=== PATIENT | male | born 1945 | race Caucasian/White ===

== ENCOUNTER 2022-06-28 09:27 | Outpatient (CLI) | payer OTHER, SELFPAY ==
[2022-06-28 14:06] LABS: Chloride* 103 mmol/L (96-114); Sodium* 135 mmol/L (135-149)
[2022-06-28 14:08] LABS: Cholesterol* 134 mg/dL (90-199)
[2022-06-28 14:09] LABS: Alanine Aminotransferase* 20 U/L (4-50); Blood Urea Nitrogen* 19 mg/dL (7-30); Carbon Dioxide* 24 mmol/L (20-32); Creatinine* 1.1 mg/dL (0.5-1.5); Estimated Glomerular Filt Rate 69 ml/min; Glucose* 207 mg/dL (60-115); Triglycerides* 290 mg/dL (40-149)
[2022-06-28 14:10] LABS: Calcium* 9.1 mg/dL (8.4-10.6); HDL Cholesterol* 33 mg/dL (>=40); LDL Cholesterol Calculated 43 mg/dL (<100)
== END 2022-06-28 09:28 | disposition home or self-care (01) ==
PROVIDERS: PCP Family Medicine; Visit Provider Family Medicine
DX: Z00.00 Encounter for general adult medical examination without abnormal findings (principal); E78.5 Hyperlipidemia, unspecified; E11.9 Type 2 diabetes mellitus without complications; I10 Essential (primary) hypertension
CPT/HCPCS: 80048; 80061; 84460

== ENCOUNTER 2023-08-10 09:21 | Outpatient (CLI) | payer OTHER, SELFPAY ==
--- OUTSIDE RECORDS SUMMARY | 2023-08-10 09:24 | XMS_ITS | Clinical Summary ---
Author Name Unknown Organization [employer] [facility] Address [place], [place] [address] Care Team Providers Care [facility] [employer] Name Role Phone Tavo Butler MD Primary Care Provider + Allergies No known active allergies Medications Medication Sig Dispensed Refills Start Date End Date Status atenolol (TENORMIN) 50 mg tabletIndications:Hyp ertension Take 1 tablet by mouth once daily. 90 tablet 1 01/08/2013 Active sildenafil citrate (VIAGRA) 100 mg tablet Take 1 tablet by mouth once daily if needed. Take 30min to 4 hours before sexual activity. Max 100mg/24hr. 10 tablet 1 01/08/2013 Active clopidogrel (PLAVIX) 75 mg tablet Take 1 tablet by mouth once daily. 90 tablet 3 11/28/2013 Active atorvastatin (LIPITOR) 80 mg tabletIndications:Hyp erlipidemia, unspecified hyperlipidemia type Take 20 mg daily. New dose. 0 04/25/2016 Active lisinopriL (PRINIVIL; ZESTRIL) 20 mg tablet Take 1 Tablet (20 mg) by mouth once daily. 0 11/04/2020 Active cilostazoL (PLETAL) 50 mg tabletIndications:PAD (peripheral artery disease) (HC) Take 1 Tablet (50 mg) by mouth 2 times daily before meals. 180 Tablet 3 11/04/2020 Active furosemide (LASIX) 40 mg tablet TAKE ONE TABLET BY MOUTH EVERY DAY AND TAKE ONE-HALF TABLET EVERY EVENING NEEDED IF WEIGHT INCREASE BY GREATER THEN 3 POUNDS IN 1 DAY OR GREATER THEN 5 POUNDS IN 3 DAYS 05/04/2020 Active metFORMIN (GLUCOPHAGE XR) 500 mg Extended-Release tablet TAKE ONE TABLET BY MOUTH THREE TIMES A DAY FOR DIABETES 11/01/2020 Active nicotine 21 mg/24 hr (NICODERM; HABITROL) 21 mg/24 hr patch APPLY 1 PATCH TOPICALLY EVERY DAY 02/01/2021 Active nicotine (COMMIT) 4 mg lozenge DISSOLVE 1 MINI LOZENGE IN MOUTH EVERY HOUR NEEDED EVERY 1 HOUR NEEDED FOR URGE TO USE TOBACCO - PARK BETWEEN CHEEK AND GUM TO QUIT TOBACCO EVERY 1 HOUR NEEDED FOR URGE TO USE TOBACCO - PARK BETWEEN CHEEK AND GUM TO QUIT TOBACCO 11/03/2020 Active tiotropium bromide (SPIRIVA RESPIMAT) 2.5 mcg/actuation mist for inhalation INHALE TWO PUFFS BY INHALATION EVERY DAY TO PREVENT TROUBLE BREATHING RESTART SPIRIVA 12/30/2020 Active albuterol HFA (PRO-AIR; VENTOLIN; PROVENTIL) 90 mcg/actuation inhaler INHALE 2 PUFFS FOUR TIMES A DAY NEEDED FOR SHORTNESS OF BREATH & IMMEDIATE RELIEF - SHAKE WELL 11/01/2020 Active Accu-Chek Guide Glucose Meter DIRECTED 08/26/2021 Active Accu-Chek Guide test strips strip TEST TWO TIMES A DAY 08/26/2021 Active empagliflozin (JARDIANCE) 25 mg tablet 12.5 mg. 08/24/2021 Active Accu-Chek Softclix Lancets 2 times daily. 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 CVA (cerebral infarction) 12/04/2013 COPD (chronic obstructive pulmonary disease) Carotid bruit 10/20/2010 Hypertension 10/20/2010 Vitamin D deficiency 09/23/2008 Nasal lesion 08/09/2008 PERIPHERAL ARTERY DISEASE 10/22/2007 Tobacco use disorder 08/23/2006 Encounter for screening colonoscopy Resolved Problems Problem Noted Date Diagnosed Date Resolved Date Fatigue 01/20/2014 10/13/2015 Dyslipidemia 10/20/2010 10/13/2015 CRP elevated 10/05/2009 10/13/2015 Pre-diabetes 11/19/2008 10/13/2015 Vitamin D deficiency 09/23/2008 010 Elevated glucose 08/09/2008 11/21/2011 Cramp of limb 10/22/2007 10/13/2015 Cramp of limb 09/10/2006 10/22/2007 Other symptoms involving car diovascular system 09/10/2006 10/13/2015 Immunizations Name Administration Dates Next Due AMB Influenza, IIV3 (Age >=3 years) Preserve Free (Flu Clinic Only) 01/21/2011 AMB Influenza, IIV3 (Age >=3 years)(Flu Clinic Only) 12/20/2011,01/14/2010 Influenza, High-dose Inactivated 01/21/2018,11/25,01/11/2015 Influenza, IIV3 (Age >=3 years) 01/08/2013,12/28,01/14/2007 Influenza, IIV4 02/23/2014 Pneumococcal Poly,23-Valent (Pneumovax) 10/19/19 10 Pneumococcal conj 13-Valent (Prevnar 13) 016 Td (Age >=7 Years) 02/28/1990 Tdap 09/07/2006 Zoster (Zostavax-ZVL, live) 11/01/2009 Family History * Patient is adopted Medical History Relation Name Comments Hypertension Mother Relation Name Status Comments Brother 1 1/2 fall constr uction Brother 2 1/2 Brother 3 Alive 1/2 Brother 4 Alive 1/2 Brother 5 Alive 1/2 Daughter Alive Father (Age 79) Pancreatic cancer Mother (Age 54) Cancer sto mach Sister 1 Alive 1/2 sister Sister 2 Alive 1/2 sister Sister 3 Alive 1/2 sister Son Alive Social History Tobacco Use Types Packs/Day Years Used Date Smoking Tobacco: Every Day Cigarettes 1.5 52 Smokeless Tobacco: Never Tobacco Cessation:Ready to Q uit: No; Counseling Given: Yes Comments:using patches to try to quit Alcohol Use Standard Drinks/Week Comments No 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/17 PHQ-2 Answer Date Recorded PHQ-2 Score 0 05/25/2018 Social Connections Answer Date Recorded Frequency of Communication with Friends and Fami ly Not on file 03/26/2021 Financial Resource Strain Answer Date R ecorded Difficulty of Paying Living Expenses Not on file 03/26/2021 Difficulty of Paying Living Expenses Not on file 03/26/2021 Sex and Gender Information Value Date Recorded Sex Assigned at Not on file Gender Identity Not on file Sexual Orientation Not on file Obstetrics History Last Filed Vital Signs Vital Sign Reading Time Taken Comments Blood Pressure 102/70 10/20/2021 9:24 AM CDT Pulse 108 10/20/2021 9:32 AM CDT Temperature 36.9 ??C (98.4 ??F) 12/18/2020 2:44 PM CD T Respiratory Rate 14 10/20/2021 9:24 AM CDT Oxygen Saturation 94% 10/20/2021 9:32 AM CDT Inhaled Oxygen Concentration - - Weight 83.5 kg (184 lb 1.6 oz) 10/20/2021 9:24 A M CDT Height 169.5 cm (5' 6.73) 10/20/2021 9:24 AM CD T Body Mass Index 29.07 10/20/2021 9:24 AM CDT Plan of Treatment Health Maintenance Due Date Last Done Comments Zoster (shingles) series for age 50+ (2 of 3) 12/27/2009 11/01/2009 Tetanus booster 09/07/2016 09/07/2006, 02/28/1990 Medicare Wellness for age 65+ 11/15/2016, 08/24/2014, 01/08/2013, Additional history exists Depression screening for age 12+ 01/31/2019 01/31/2018, 05/11/2017, 11/15/2015, Additional history exists BMI (ht and wt on same day) for age 18+ 10/20/2022 10/20/2021, 02/10/2021, 11/04/2020, Additional history exists COVID-19 vaccine series ( season) 2022 01/12/2021 Influenza for age 65+ 11/25/2023 01/21/2018 , 12/17/2015, 01/11/2015, Additional history exists Tdap Completed 09/07/2006 Hepatitis C screening for ag e 18-79 Completed 01/15/2014 Pneumococcal series for age 65+ Completed 6, 10/18/2009 Procedures Procedure Name Priority Date/Time Associated Diagnosis Comments ANTI HCV Routine 01/15/2014 7:48 AM CDT Routine general medical examination at a health care facility from Last 3 Months or Most Recently Relevant to Health Maintenance Results * ANTI HCV (01/15/2014 7:48 AM CDT) HEPATITIS C ANTIBODY Non-Reacti ve Non-Reacti ve 01/15/2014 5:06 PM CDT [facility] Blood specimen (specimen) BLOOD SPECIMEN / Unknown Venipuncture / Unknown 01/15/2014 7:48 AM CDT 01/15/2014 7:48 AM CDT Narrative [facility] - 01/15/2014 5:06 PM CDT Antibodies to HCV not detected; does not exclude the possibility of exposure to HCV. Mike Jain MD SEND OUTS [facility] [address] [place] [address], [place] from Last 3 Months or Most Recently Relevant to Health Maintenance Advance Directives Documents on File Type Date Recorded Patient Restaurant Manager Expl anation Healthcare Directive 01/25/2016 11:27 AM 1 * Full Code (Latest Code Status on File) Date Activated Date Inactivated Comments 10/15/2015 6:24 AM 10/15/2015 6:12 PM * Full Code Date Activated Date Inactivated Comments 10/13/2015 5:45 AM 10/15/2015 6:24 AM Question Answer Comments Code Status Discussion: Discussed * Full Code Date Activated Date Inactivated Comments 10/07/2015 4:21 PM 10/09/2015 1:22 PM Question Answer Comments Code Status Discussion: Discussed * Full Code Date Activated Date Inactivated Comments 02/20/2014 6:10 AM 02/20/2014 3:50 PM Care Teams [employer] Relationship Specialty Start Date End Date Tavo Butler MD [address] [place] [address] PCP - General Family Practice 10/10/17
--- OUTSIDE RECORDS SUMMARY | 2023-08-10 09:24 | XMS_ITS | Continuity of Care Document ---
Author Name [facility] Organization [facility] Care Team Providers Care Facilities Manager Name Role Phone [facility] Unavailable Unavailable Problems Combined list of problems from Department of Defense and Veterans Affairs facilities. It does not include entries that were removed or entered in error. 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 FEV1% 52 [facility] Current heavy tobacco smoker Active Condition [facility] HLD - Hyperlipidemia Active Condition [facility] Multiple nodules of lung Active Condition [facility] Obesity Active Condition [facility] Peripheral arterial disease Active Condition August 10 0 Entered By: JUN FUNG Comment: S/P bilateral common iliac stents (02/2019). 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[place], bi legs Active Diagnosis [facility] Diagnosis: ICD-10-CM I10 Essential (primary) hypertension Active Diagnosis [facility] Diagnosis: ICD-10-CM G62.9 Polyneuropathy, unspecified Active Diagnosis [facility] Diagnosis: ICD-10-CM J44.9 Chronic obstructive pulmonary disease, unspecified Active Diagnosis [facility] Diagnosis: ICD-10-CM E11.8 Type 2 diabetes mellitus with unspecified complications Active Diagnosis [facility] Diagnosis: ICD-10-CM L03.90 Cellulitis, unspecified Active Diagnosis [facility] Medications Combined list of outpatient medications from Department of Defense and [facility] Affairs facilities.Medications provided include 1) outpatient medications from the last 15 months, and 2) patient-reported medications. Medication Details Route Status Patient Instructions Prescription Expires Prescription Number Last Dispense Date Ordering Provider Order Date Order Qty Source ALBUTEROL 90MCG/ACTUA T (CFC-F) INHL,ORAL,8 .5GM DOSE COUNTER INHALE 2 PUFFS BY INHALATI ON FOUR TIMES A DAY NEEDED FOR SHORTNES S OF BREATH and IMMEDIAT E RELIEF - SHAKE WELL INHALA TION ACTIVE 04/17/2024 [id number] [facility] 2 [facility] ALBUTEROL 90MCG/ACTUA T (CFC-F) INHL,ORAL,8 .5GM DOSE COUNTER INHALE 2 PUFFS BY INHALATI ON FOUR TIMES A DAY NEEDED FOR SHORTNES S OF BREATH and IMMEDIAT E RELIEF - SHAKE WELL INHALA TION DISCONT INUED 03/14/2023 [id number] 3 [facility]ABEL,[facility] A 2021 2 [facility] ATENOLOL 25MG TAB TAKE ONE TABLET BY MOUTH EVERY DAY FOR BLOOD PRESSURE REDUCED DOSE 10/27/22 ORALLY ACTIVE 10/28/2023 [id number] ISABEL, TH A 2022 90 [facility] ATENOLOL 50MG TAB TAKE ONE TABLET BY MOUTH EVERY DAY ORALLY DISCONT INUED (EDIT) 03/14/2023 [id number] 3 NAIDL,TOD D 2021 90 [facility] ATORVASTATI N CA 40MG TAB TAKE ONE TABLET BY MOUTH AT BEDTIME FOR CHOLESTE ROL ORALLY ACTIVE 10/28/2023 [id number] 4 [facility] A 2022 90 [facility] ATORVASTATI N CA 40MG TAB TAKE ONE TABLET BY MOUTH AT BEDTIME FOR CHOLESTE ROL FOR CHOLESTE ROL ORALLY DISCONT INUED 03/14/2023 [id number] 3 [facility] A 2021 90 [facility] CLOPIDOGREL BISULFATE 75MG TAB TAKE ONE TABLET BY MOUTH EVERY DAY TO PREVENT BLOOD CLOTS ORALLY ACTIVE 10/28/2023 [id number] 4 [facility] A 2022 90 [facility] CLOPIDOGREL BISULFATE 75MG TAB TAKE ONE TABLET BY MOUTH EVERY DAY TO PREVENT BLOOD CLOTS ORALLY DISCONT INUED 11/16/2022 [id number] 3 [facility] A 2021 90 [facility] EMPAGLIFLOZ IN 25MG TAB TAKE ONE TABLET BY MOUTH EVERY MORNING FOR DIABETES ORALLY SUSPEND ED 05/24/2024 [id number] 4 NAIDL,TOD D 2023 90 [place] [facility] EMPAGLIFLOZ IN 25MG TAB TAKE ONE TABLET BY MOUTH EVERY MORNING FOR DIABETES ORALLY DISCONT INUED 10/28/2023 [id number] 3 [facility] A 2022 90 [facility] EMPAGLIFLOZ IN 25MG TAB TAKE ONE TABLET BY MOUTH EVERY MORNING FOR DIABETES ORALLY DISCONT INUED 07/12/2023 [id number] 3 NAIDL,TOD D 2022 90 [facility] EMPAGLIFLOZ IN 25MG TAB TAKE ONE-HALF TABLET BY MOUTH EVERY MORNING FOR DIABETES ORALLY DISCONT INUED (EDIT) 08/25/2022 [id number] 3 [facility] A 2021 45 [facility] FUROSEMIDE 40MG TAB TAKE ONE TABLET BY MOUTH EVERY DAY AND TAKE ONE-HALF TABLET EVERY EVENING NEEDED IF WEIGHT INCREASE BY GREATER THEN 3 POUNDS IN 1 DAY OR GREATER THEN 5 POUNDS IN 3 DAYS ORALLY ACTIVE 10/28/2023 [id number] 4 [facility] A 2022 135 [place] [facility] FUROSEMIDE 40MG TAB TAKE ONE TABLET BY MOUTH EVERY DAY AND TAKE ONE-HALF TABLET EVERY EVENING NEEDED IF WEIGHT INCREASE BY GREATER THEN 3 POUNDS IN 1 DAY OR GREATER THEN 5 POUNDS IN 3 DAYS ORALLY DISCONT INUED 09/22/2023 [id number] 3 [facility] A 2022 135 [place] [facility] GLIMEPIRIDE 2MG TAB TAKE ONE TABLET BY MOUTH EVERY MORNING ORALLY ACTIVE NAIDL,TOD D 2023 [facility] LIDOCAINE 5% PATCH APPLY 1 PATCH TOPICALL Y EVERY DAY NEEDED FOR UP TO 12 HOURS FOR PAIN IN HIP TOPICA LLY ACTIVE 04/17/2024 [id number] 4 NAIDL,TOD D 2023 30 [place] [facility] LISINOPRIL 20MG TAB TAKE ONE TABLET BY MOUTH EVERY DAY FOR BLOOD PRESSURE ORALLY ACTIVE 10/28/2023 [id number] 4 [facility] A 2022 90 [place] [facility] LISINOPRIL 20MG TAB TAKE ONE TABLET BY MOUTH EVERY DAY FOR BLOOD PRESSURE FOR BLOOD PRESSURE ORALLY DISCONT INUED 03/14/2023 [id number] 3 [facility] A 2021 90 [place] [facility] METFORMIN HCL 500MG 24HR TAB,SA TAKE ONE TABLET BY MOUTH TWICE A DAY FOR DIABETES ORALLY DISCONT INUED BY PROVIDE R 10/28/2023 [id number] 3 [facility] A 2022 180 [place] [facility] METFORMIN HCL 500MG 24HR TAB,SA TAKE ONE TABLET BY MOUTH TWICE A DAY FOR DIABETES ORALLY DISCONT INUED 07/12/2023 [id number] 3 NAIDL,TOD D 2022 180 [place] [facility] METFORMIN HCL 500MG 24HR TAB,SA TAKE ONE TABLET BY MOUTH AT BEDTIME FOR DIABETES ORALLY DISCONT INUED (EDIT) 03/14/2023 [id number] 3 [facility] A 2022 90 [facility] NICOTINE 21MG/24HRS PATCH APPLY 1 PATCH TOPICALL Y EVERY DAY TO QUIT TOBACCO CALL PHARMACI ST FOR REFILL TOPICA LLY ACTIVE 04/17/2024 [id number] 4 NAIDL,TOD D 2023 28 [facility] NICOTINE 21MG/24HRS PATCH APPLY 1 PATCH TOPICALL Y EVERY DAY TO QUIT TOBACCO CALL PHARMACI ST FOR REFILL TOPICA LLY DISCONT INUED 08/04/2023 [id number] 3 NAIDL,TOD D 2022 28 [facility] NICOTINE 21MG/24HRS PATCH APPLY 1 PATCH TOPICALL Y EVERY DAY TO QUIT TOBACCO CALL PHARMACI ST FOR REFILL TOPICA LLY DISCONT INUED 06/09/2023 [id number] 3 NAIDL,TOD D 2022 28 [facility] POLACRILEX 2MG MINI LOZENGE DISSOLVE 1 MINI LOZENGE IN MOUTH EVERY HOUR NEEDED TO QUIT TOBACCO (UP TO 20 LOZENGES PER 24 HOURS) ORALLY DISCONT INUED 06/09/2023 [id number] 3 NAIDL,TOD D 2022 243 [facility] NICOTINE POLACRILEX 4MG MINI LOZENGE DISSOLVE 1 MINI LOZENGE IN MOUTH EVERY HOUR NEEDED TO QUIT TOBACCO UP TO 20 LOZENGES PER 24 HOURS ORALLY ACTIVE 04/17/2024 [id number] 4 NAIDL,TOD D 2023 243 [facility] NICOTINE POLACRILEX 4MG MINI LOZENGE DISSOLVE 1 MINI LOZENGE IN MOUTH EVERY HOUR NEEDED TO QUIT TOBACCO UP TO 20 LOZENGES PER 24 HOURS ORALLY DISCONT INUED 11/02/2023 [id number] 3 NAIDL,TOD D 2022 243 [facility] OLODATEROL 2.5MCG/TIOT ROPIUM 2.5MCG/ACTU AT INHL,ORAL,6 0D,4GM INHALE 2 PUFFS BY INHALATI ON EVERY DAY TO PREVENT TROUBLE BREATHIN G INHALA TION ACTIVE 10/28/2023 [id number] 4 ISABEL,[facility] A 2022 1 [facility] OLODATEROL 2.5MCG/TIOT ROPIUM 2.5MCG/ACTU AT INHL,ORAL,6 0D,4GM INHALE 2 PUFFS BY INHALATI ON EVERY DAY TO PREVENT TROUBLE BREATHIN G INHALA TION DISCONT INUED 10/07/2022 [id number] 3 [facility] A 2021 1 [facility] PSYLLIUM PWDR,ORAL TAKE 1 TABLESPO ONFUL BY MOUTH EVERY DAY FOR REGULAR BOWEL MOVEMENT S ORALLY ACTIVE 10/28/2023 [id number] 3 [facility] A 2022 780 [facility] SILDENAFIL CITRATE 100MG TAB TAKE ONE TABLET BY MOUTH NEEDED FOR ERECTILE DYSFUNCT ION ORALLY ACTIVE 11/02/2023 [id number] 3 [facility] A 2022 18 [facility] ZOLPIDEM TARTRATE 10MG TAB TAKE ONE TABLET BY MOUTH AT BEDTIME ORALLY ACTIVE NAIDL,TOD D 2023 [facility] Allergies, Adverse Reactions, Alerts Combined list of allergies from Department of Defense and Veterans Affairs facilities. It does not include entries that were removed or entered in error. Substance Category Reaction Severity Reaction type Status Date Reported Comments Source METFORMIN Propensity to adverse reactions to drug (finding) Diarrhea active 4 [facility] Immunizations Combined list of available immunizations from the Department of Defense and Veterans Affairs facilities. Immunization Series Date Given Administered By Site Reaction Lot Number CVX Code Drug Gel Coat Sprayer Status Comments Source INFLUENZA, UNSPECIFIED FORMULATION 2021 88 complet ed [facility] TDAP 2021 115 complet ed [facility] COVID-19 (PFIZER), MRNA, LNP-S, PF, 30 MCG/0.3 ML DOSE 3 2020 208 complet ed [facility] INFLUENZA, UNSPECIFIED FORMULATION 2020 88 complet ed [facility] COVID-19 (PFIZER), MRNA, LNP-S, PF, 30 MCG/0.3 ML DOSE 2 2020 208 complet ed PFR; [id number]; 1 [facility] COVID-19 (PFIZER), MRNA, LNP-S, PF, 30 MCG/0.3 ML DOSE 1 2020 208 complet ed PFR; [id number]; 1 [facility] INFLUENZA, UNSPECIFIED FORMULATION 2019 88 complet ed [facility] ZOSTER RECOMBINANT 2 2018 187 complet ed [facility] INFLUENZA, HIGH DOSE SEASONAL 2018 135 complet ed [facility] ZOSTER RECOMBINANT 1 2018 187 complet ed [facility] INFLUENZA, SEASONAL, INJECTABLE 2017 141 complet ed [facility] INFLUENZA, HIGH DOSE SEASONAL 2016 135 complet ed [facility] PNEUMOCOCCAL POLYSACCHARID E PPV23 2016 33 complet ed Merck [id number] exp [id number] [facility] INFLUENZA, HIGH DOSE SEASONAL 2015 135 complet ed [facility] PNEUMOCOCCAL CONJUGATE PCV 13 2015 133 complet ed [employer] [id number] exp 08/09 [facility] INFLUENZA, SEASONAL, INJECTABLE 2014 141 complet ed [facility] INFLUENZA, SEASONAL, INJECTABLE 2013 141 complet ed [facility] INFLUENZA, UNSPECIFIED FORMULATION 2012 88 complet ed [facility] TD (ADULT) 2011 138 complet ed [facility] ZOSTER LIVE 2009 121 complet ed [facility] PNEUMOCOCCAL, UNSPECIFIED FORMULATION 2008 109 complet ed [facility] [place] [facility] TDAP 2006 115 complet ed [facility] INFLUENZA, UNSPECIFIED FORMULATION 1998 STAFF,NURSE 88 complet ed [facility] Results Combined list of recent chemistry, hematology and other laboratory results from Department of Defense and Veterans Affairs, ranging from 15 months to all on record, depending upon the facility. Order Name Results Value Reference Range Date Interpretation Specimen Comments Source HEMOGLOBI N A1C HEMOGLOBIN A1C/HEMOGLO BIN.TOTAL IN BLOOD 7.0 4.0 - 6.0 06/12 H Specimen Type: BLOOD Comment: Values obtained from A1C measurement s can vary. For typical A1C assays, a reported value of 7.0 could actually be between 6.7 and 7.3 if measured by a reference method. A reported value of 9.0 could actually be between 8.7 and 9.3. Ref: [email or web address]/[email or web address] Pdata.asp Ordering Provider: LUCIE HALL Report Released Date/Time: Oct 27, 2022 09:34 AM Reporting Lab: [facility] [phone] Performing Lab: [facility] [address] [facility] CBC LEUKOCYTES [#/VOLUME] IN BLOOD BY AUTOMATED COUNT 12.21 4.0 - 11.0 06/12 H Specimen Type: BLOOD No comment entered. Ordering Provider: LUCIE HALL Report Released Date/Time: Oct 27, 2022 09:34 AM Reporting Lab: [facility] [address] Performing Lab: [facility] [address] [facility] IS [facility] CBC ERYTHROCYTE S [#/VOLUME] IN BLOOD BY AUTOMATED COUNT 5.14 4.6 - 6.2 06/12 Specimen Type: BLOOD No comment entered. Ordering Provider: LUCIE HALL Report Released Date/Time: Oct 27, 2022 09:34 AM Reporting Lab: [facility] [address] Performing Lab: [facility] [address] [place] [facility] CBC HEMOGLOBIN [MASS/VOLUM E] IN BLOOD 17.3 13.5 - 17.9 06/12 Specimen Type: BLOOD No comment entered. Ordering Provider: LUCIE HALL Report Released Date/Time: Oct 27, 2022 09:34 AM Reporting Lab: [facility] [address] Performing Lab: [facility] [address] [facility] CBC HEMATOCRIT [VOLUME FRACTION] OF BLOOD BY AUTOMATED COUNT 51.1 41 - 54 06/12 Specimen Type: BLOOD No comment entered. Ordering Provider: LUCIE HALL Report Released Date/Time: Oct 27, 2022 09:34 AM Reporting Lab: [facility] [address] Performing Lab: [facility] [address] [place] [facility] CBC MCV [ENTITIC VOLUME] BY AUTOMATED COUNT 99.4 80 - 100 06/12 Specimen Type: BLOOD No comment entered. Ordering Provider: LUCIE HALL Report Released Date/Time: Oct 27, 2022 09:34 AM Reporting Lab: [facility] [address] Performing Lab: [facility] [address] [place] [facility] CBC MCH [ENTITIC MASS] BY AUTOMATED COUNT 33.7 27 - 33 06/12 H Specimen Type: BLOOD No comment entered. Ordering Provider: LUCIE HALL Report Released Date/Time: Oct 27, 2022 09:34 AM Reporting Lab: [facility] [address] Performing Lab: [facility] [address] [place] [facility] CBC MCHC [MASS/VOLUM E] BY AUTOMATED COUNT 33.9 32.0 - 37.5 06/12 Specimen Type: BLOOD No comment entered. Ordering Provider: LUCIE HALL Report Released Date/Time: Oct 27, 2022 09:34 AM Reporting Lab: [facility] [address] Performing Lab: [facility] [address] [place] [facility] CBC PLATELETS [#/VOLUME] IN BLOOD BY AUTOMATED COUNT 234 150 - 400 06/12 Specimen Type: BLOOD No comment entered. Ordering Provider: LUCIE HALL Report Released Date/Time: Oct 27, 2022 09:34 AM Reporting Lab: [facility] [address] Performing Lab: [facility] [address] [place] [facility] CBC PLATELET MEAN VOLUME [ENTITIC VOLUME] IN BLOOD BY AUTOMATED COUNT 9.5 7.4 - 10.4 06/12 Specimen Type: BLOOD No comment entered. Ordering Provider: LUCIE HALL Report Released Date/Time: Oct 27, 2022 09:34 AM Reporting Lab: [facility] [address] Performing Lab: [facility] [address] [place] [facility] CBC ERYTHROCYTE DISTRIBUTIO N WIDTH [RATIO] BY AUTOMATED COUNT 13.0 11.5 - 14.5 06/12 Specimen Type: BLOOD No comment entered. Ordering Provider: LUCIE HALL Report Released Date/Time: Oct 27, 2022 09:34 AM Reporting Lab: [facility] [address] Performing Lab: [facility] [address] [place] [facility] BASIC METABOLIC PANEL+MG CREATININE [MASS/VOLUM E] IN SERUM OR PLASMA 1.1 0.7 - 1.2 06/12 Specimen Type: PLASMA No comment entered. Ordering Provider: LUCIE HALL Report Released Date/Time: Oct 27, 2022 09:34 AM Reporting Lab: [facility] [address] Performing Lab: [facility] [address] [place] [facility] BASIC METABOLIC PANEL+MG UREA NITROGEN [MASS/VOLUM E] IN SERUM OR PLASMA 22 8 - 26 06/12 Specimen Type: PLASMA No comment entered. Ordering Provider: LUCIE HALL Report Released Date/Time: Oct 27, 2022 09:34 AM Reporting Lab: [facility] [address] Performing Lab: [facility] [address] [place] [facility] BASIC METABOLIC PANEL+MG GLUCOSE [MASS/VOLUM E] IN SERUM OR PLASMA 152 70 - 100 06/12 H Specimen Type: PLASMA No comment entered. Ordering Provider: LUCIE HALL Report Released Date/Time: Oct 27, 2022 09:34 AM Reporting Lab: [facility] [address] Performing Lab: [facility] [address] [place] [facility] BASIC METABOLIC PANEL+MG SODIUM [MOLES/VOLU ME] IN SERUM OR PLASMA 136 136 - 145 06/12 Specimen Type: PLASMA No comment entered. Ordering Provider: LUCIE HALL Report Released Date/Time: Oct 27, 2022 09:34 AM Reporting Lab: [facility] [address] Performing Lab: [facility] [address] [place] [facility] BASIC METABOLIC PANEL+MG POTASSIUM [MOLES/VOLU ME] IN SERUM OR PLASMA 4.4 3.5 - 5.1 06/12 Specimen Type: PLASMA No comment entered. Ordering Provider: LUCIE HALL Report Released Date/Time: Oct 27, 2022 09:34 AM Reporting Lab: [facility] [address] Performing Lab: [facility] [address] [place] [facility] BASIC METABOLIC PANEL+MG CHLORIDE [MOLES/VOLU ME] IN SERUM OR PLASMA 102 98 - 107 06/12 Specimen Type: PLASMA No comment entered. Ordering Provider: LUCIE HALL Report Released Date/Time: Oct 27, 2022 09:34 AM Reporting Lab: [facility] [address] Performing Lab: [facility] [address] [place] [facility] BASIC METABOLIC PANEL+MG CARBON DIOXIDE, TOTAL [MOLES/VOLU ME] IN SERUM OR PLASMA 22 22 - 29 06/12 Specimen Type: PLASMA No comment entered. Ordering Provider: LUCIE HALL Report Released Date/Time: Oct 27, 2022 09:34 AM Reporting Lab: [facility] [address] Performing Lab: [facility] [address] [place] [facility] BASIC METABOLIC PANEL+MG CALCIUM [MASS/VOLUM E] IN SERUM OR PLASMA 9.9 8.4 - 10.2 06/12 Specimen Type: PLASMA No comment entered. Ordering Provider: LUCIE HALL Report Released Date/Time: Oct 27, 2022 09:34 AM Reporting Lab: [facility] [address] Performing Lab: [facility] [address] [place] [facility] BASIC METABOLIC PANEL+MG MAGNESIUM [MASS/VOLUM E] IN SERUM OR PLASMA 2.2 1.6 - 2.6 06/12 Specimen Type: PLASMA No comment entered. Ordering Provider: LUCIE HALL Report Released Date/Time: Oct 27, 2022 09:34 AM Reporting Lab: [facility] [address] Performing Lab: [facility] [address] [place] [facility] BASIC METABOLIC PANEL+MG ANION GAP IN SERUM OR PLASMA 12 5 - 15 06/12 Specimen Type: PLASMA No comment entered. Ordering Provider: LUCIE HALL Report Released Date/Time: Oct 27, 2022 09:34 AM Reporting Lab: [facility] [address] Performing Lab: [facility] [address] [place] [facility] BASIC METABOLIC PANEL+MG GLOMERULAR FILTRATION RATE/1.73 SQ M.PREDICTED [VOLUME RATE/AREA] IN SERUM, PLASMA OR BLOOD BY CREATININE- BASED FORMULA (CKD-EPI 2020) 69 60 06/12 Specimen Type: PLASMA No comment entered. Ordering Provider: LUCIE HALL Report Released Date/Time: Oct 27, 2022 09:34 AM Reporting Lab: [facility] [address] Performing Lab: [facility] [address] [place] [facility] POC CREATININ E CREATININE [MASS/VOLUM E] IN BLOOD 1.1 0.6 - 1.3 01/25 Specimen Type: BLOOD No comment entered. Ordering Provider: DANIEL CASTRO Report Released Date/Time: Jan 26, 2023 12:25 PM Reporting Lab: [facility] [address] Performing Lab: [facility] [address] [place] [facility] POC CREATININ E CREATININE [MASS/VOLUM E] IN BLOOD 1.0 0.6 - 1.3 01/23 Specimen Type: BLOOD No comment entered. Ordering Provider: LUCIE HALL Report Released Date/Time: Jan 24, 2023 10:26 AM Reporting Lab: [facility] [address] Performing Lab: [facility] [address] [place] [facility] HEMOGLOBI N A1C HEMOGLOBIN A1C/HEMOGLO BIN.TOTAL IN BLOOD 7.1 4.0 - 6.0 10/27 H Specimen Type: BLOOD Comment: Values obtained from A1C measurement s can vary. For typical A1C assays, a reported value of 7.0 could actually be between 6.7 and 7.3 if measured by a reference method. A reported value of 9.0 could actually be between 8.7 and 9.3. Ref: [email or web address]/[email or web address] [email or web address] Ordering Provider: LUCIE HALL Report Released Date/Time: Mar 13, 2022 10:06 AM Reporting Lab: [facility] [address] Performing Lab: [facility] [address] [place] [facility] LIPID PANEL,NON -FASTING CHOLESTEROL [MASS/VOLUM E] IN SERUM OR PLASMA 97 <199 - 199 10/27 Specimen Type: PLASMA No comment entered. Ordering Provider: LUCIE HALL Report Released Date/Time: Mar 13, 2022 10:06 AM Reporting Lab: [facility] [address] Performing Lab: [facility] [address] [place] [facility] LIPID PANEL,NON -FASTING CHOLESTEROL IN HDL [MASS/VOLUM E] IN SERUM OR PLASMA 28 40 10/27 L Specimen Type: PLASMA No comment entered. Ordering Provider: LUCIE HALL Report Released Date/Time: Mar 13, 2022 10:06 AM Reporting Lab: [facility] [address] Performing Lab: [facility] [address] [place] [facility] LIPID PANEL,NON -FASTING CHOLESTEROL IN LDL [MASS/VOLUM E] IN SERUM OR PLASMA BY CALCULATION 42 <99 - 99 10/27 Specimen Type: PLASMA No comment entered. Ordering Provider: LUCIE HALL Report Released Date/Time: Mar 13, 2022 10:06 AM Reporting Lab: [facility] [id number] Performing Lab: [facility] [phone] [place] [facility] LIPID PANEL,NON -FASTING CHOLESTEROL IN VLDL [MASS/VOLUM E] IN SERUM OR PLASMA BY CALCULATION 27 <29 - 29 10/27 Specimen Type: PLASMA No comment entered. Ordering Provider: LUCIE HALL Report Released Date/Time: Mar 13, 2022 10:06 AM Reporting Lab: [facility] [id number] Performing Lab: [facility] [id number] [place] [facility] LIPID PANEL,NON -FASTING CHOLESTEROL NON HDL [MASS/VOLUM E] IN SERUM OR PLASMA 69 <129 - 129 10/27 Specimen Type: PLASMA No comment entered. Ordering Provider: LUCIE HALL Report Released Date/Time: Mar 13, 2022 10:06 AM Reporting Lab: [facility] [address] Performing Lab: [facility] [address] [place] [facility] LIPID PANEL,NON -FASTING TRIGLYCERID E [MASS/VOLUM E] IN SERUM OR PLASMA 133 <149 - 149 10/27 Specimen Type: PLASMA No comment entered. Ordering Provider: LUCIE HALL Report Released Date/Time: Mar 13, 2022 10:06 AM Reporting Lab: [facility] [address] Performing Lab: [facility] [address] [place] [facility] COMPREHEN SIVE METABOLIC PANEL+MG CREATININE [MASS/VOLUM E] IN SERUM OR PLASMA 1.1 0.7 - 1.2 10/27 Specimen Type: PLASMA No comment entered. Ordering Provider: LUCIE HALL Report Released Date/Time: Mar 13, 2022 10:06 AM Reporting Lab: [facility] [address] Performing Lab: [facility] [address] [place] [facility] COMPREHEN SIVE METABOLIC PANEL+MG UREA NITROGEN [MASS/VOLUM E] IN SERUM OR PLASMA 15 8 - 26 10/27 Specimen Type: PLASMA No comment entered. Ordering Provider: LUCIE HALL Report Released Date/Time: Mar 13, 2022 10:06 AM Reporting Lab: [facility] [address] Performing Lab: [facility] [address] [place] [facility] COMPREHEN SIVE METABOLIC PANEL+MG GLUCOSE [MASS/VOLUM E] IN SERUM OR PLASMA 149 70 - 100 10/27 H Specimen Type: PLASMA No comment entered. Ordering Provider: LUCIE HALL Report Released Date/Time: Mar 13, 2022 10:06 AM Reporting Lab: [facility] [address] Performing Lab: [facility] [address] [place] [facility] COMPREHEN SIVE METABOLIC PANEL+MG SODIUM [MOLES/VOLU ME] IN SERUM OR PLASMA 140 136 - 145 10/27 Specimen Type: PLASMA No comment entered. Ordering Provider: LUCIE HALL Report Released Date/Time: Mar 13, 2022 10:06 AM Reporting Lab: [facility] [address] Performing Lab: [facility] [address] [place] [facility] COMPREHEN SIVE METABOLIC PANEL+MG POTASSIUM [MOLES/VOLU ME] IN SERUM OR PLASMA 4.3 3.5 - 5.1 10/27 Specimen Type: PLASMA No comment entered. Ordering Provider: LUCIE HALL Report Released Date/Time: Mar 13, 2022 10:06 AM Reporting Lab: [facility] [address] Performing Lab: [facility] [address] [place] [facility] COMPREHEN SIVE METABOLIC PANEL+MG CHLORIDE [MOLES/VOLU ME] IN SERUM OR PLASMA 104 98 - 107 10/27 Specimen Type: PLASMA No comment entered. Ordering Provider: LUCIE HALL Report Released Date/Time: Mar 13, 2022 10:06 AM Reporting Lab: [facility] [address] Performing Lab: [facility] [address] [place] [facility] COMPREHEN SIVE METABOLIC PANEL+MG CARBON DIOXIDE, TOTAL [MOLES/VOLU ME] IN SERUM OR PLASMA 26 22 - 29 10/27 Specimen Type: PLASMA No comment entered. Ordering Provider: LUCIE HALL Report Released Date/Time: Mar 13, 2022 10:06 AM Reporting Lab: [facility] [address] Performing Lab: [facility] [address] [place] [facility] COMPREHEN SIVE METABOLIC PANEL+MG CALCIUM [MASS/VOLUM E] IN SERUM OR PLASMA 9.3 8.4 - 10.2 10/27 Specimen Type: PLASMA No comment entered. Ordering Provider: LUCIE HALL Report Released Date/Time: Mar 13, 2022 10:06 AM Reporting Lab: [facility] [address] Performing Lab: [facility] [address] [place] [facility] COMPREHEN SIVE METABOLIC PANEL+MG PROTEIN [MASS/VOLUM E] IN SERUM OR PLASMA 7.0 6.0 - 8.3 10/27 Specimen Type: PLASMA No comment entered. Ordering Provider: LUCIE HALL Report Released Date/Time: Mar 13, 2022 10:06 AM Reporting Lab: [facility] [address] Performing Lab: [facility] [address] [place] [facility] COMPREHEN SIVE METABOLIC PANEL+MG ALBUMIN [MASS/VOLUM E] IN SERUM OR PLASMA 4.5 3.5 - 5.2 10/27 Specimen Type: PLASMA No comment entered. Ordering Provider: LUCIE HALL Report Released Date/Time: Mar 13, 2022 10:06 AM Reporting Lab: [facility] [address] Performing Lab: [facility] [address] [place] [facility] COMPREHEN SIVE METABOLIC PANEL+MG BILIRUBIN.T OTAL [MASS/VOLUM E] IN SERUM OR PLASMA 0.8 0.2 - 1.2 10/27 Specimen Type: PLASMA No comment entered. Ordering Provider: LUCIE HALL Report Released Date/Time: Mar 13, 2022 10:06 AM Reporting Lab: [facility] [address] Performing Lab: [facility] [address] [place] [facility] COMPREHEN SIVE METABOLIC PANEL+MG MAGNESIUM [MASS/VOLUM E] IN SERUM OR PLASMA 2.0 1.6 - 2.6 10/27 Specimen Type: PLASMA No comment entered. Ordering Provider: LUCIE HALL Report Released Date/Time: Mar 13, 2022 10:06 AM Reporting Lab: [facility] [address] Performing Lab: [facility] [address] [place] [facility] COMPREHEN SIVE METABOLIC PANEL+MG ANION GAP IN SERUM OR PLASMA 10 5 - 15 08/04 /2023 Specimen Type: PLASMA No comment entered. Ordering Provider: LUCIE HALL Report Released Date/Time: Mar 13, 2022 10:06 AM Reporting Lab: [facility] [address] Performing Lab: [facility] [address] [place] [facility] COMPREHEN SIVE METABOLIC PANEL+MG ALKALINE PHOSPHATASE [ENZYMATIC ACTIVITY/VO LUME] IN SERUM OR PLASMA 71 40 - 150 10/27 Specimen Type: PLASMA No comment entered. Ordering Provider: LUCIE HALL Report Released Date/Time: Mar 13, 2022 10:06 AM Reporting Lab: [facility] [address] Performing Lab: [facility] [address] [place] [facility] COMPREHEN SIVE METABOLIC PANEL+MG ALANINE AMINOTRANSF ERASE [ENZYMATIC ACTIVITY/VO LUME] IN SERUM OR PLASMA 16 <55 - 55 10/27 Specimen Type: PLASMA No comment entered. Ordering Provider: LUCIE HALL Report Released Date/Time: Mar 13, 2022 10:06 AM Reporting Lab: [facility] [address] Performing Lab: [facility] [address] [place] [facility] COMPREHEN SIVE METABOLIC PANEL+MG ASPARTATE AMINOTRANSF ERASE [ENZYMATIC ACTIVITY/VO LUME] IN SERUM OR PLASMA 11 <34 - 34 10/27 Specimen Type: PLASMA No comment entered. Ordering Provider: LUCIE HALL Report Released Date/Time: Mar 13, 2022 10:06 AM Reporting Lab: [facility] [address] Performing Lab: [facility] [address] [place] [facility] COMPREHEN SIVE METABOLIC PANEL+MG GLOMERULAR FILTRATION RATE/1.73 SQ M.PREDICTED [VOLUME RATE/AREA] IN SERUM, PLASMA OR BLOOD BY CREATININE- BASED FORMULA (CKD-EPI 2020) 69 60 10/27 Specimen Type: PLASMA No comment entered. Ordering Provider: LUCIE HALL Report Released Date/Time: Mar 13, 2022 10:06 AM Reporting Lab: [facility] [address] Performing Lab: [facility] [address] [place] [facility] CBC & DIFF LEUKOCYTES [#/VOLUME] IN BLOOD BY AUTOMATED COUNT 11.81 4.0 - 11.0 10/27 H Specimen Type: BLOOD Comment: Automated Differentia l Performed Ordering Provider: LUCIE HALL Report Released Date/Time: Mar 13, 2022 10:06 AM Reporting Lab: [facility] [address] Performing Lab: [facility] [address] [place] [facility] CBC & DIFF ERYTHROCYTE S [#/VOLUME] IN BLOOD BY AUTOMATED COUNT 5.02 4.6 - 6.2 10/27 Specimen Type: BLOOD Comment: Automated Differentia l Performed Ordering Provider: LUCIE HALL Report Released Date/Time: Mar 13, 2022 10:06 AM Reporting Lab: [facility] [address] Performing Lab: [facility] [address] [place] [facility] CBC & DIFF HEMOGLOBIN [MASS/VOLUM E] IN BLOOD 16.6 13.5 - 17.9 10/27 Specimen Type: BLOOD Comment: Automated Differentia l Performed Ordering Provider: LUCIE HALL Report Released Date/Time: Mar 13, 2022 10:06 AM Reporting Lab: [facility] [address] Performing Lab: [facility] [address] [place] [facility] CBC & DIFF HEMATOCRIT [VOLUME FRACTION] OF BLOOD BY AUTOMATED COUNT 49.6 41 - 54 10/27 Specimen Type: BLOOD Comment: Automated Differentia l Performed Ordering Provider: LUCIE HALL Report Released Date/Time: Mar 13, 2022 10:06 AM Reporting Lab: [facility] [address] Performing Lab: [facility] [address] [place] [facility] CBC & DIFF MCV [ENTITIC VOLUME] BY AUTOMATED COUNT 98.8 80 - 100 10/27 Specimen Type: BLOOD Comment: Automated Differentia l Performed Ordering Provider: LUCIE HALL Report Released Date/Time: Mar 13, 2022 10:06 AM Reporting Lab: [facility] [address] Performing Lab: [facility] [address] [place] [facility] CBC & DIFF MCH [ENTITIC MASS] BY AUTOMATED COUNT 33.1 27 - 33 10/27 H Specimen Type: BLOOD Comment: Automated Differentia l Performed Ordering Provider: LUCIE HALL Report Released Date/Time: Mar 13, 2022 10:06 AM Reporting Lab: [facility] [address] Performing Lab: [facility] [address] [place] [facility] CBC & DIFF MCHC [MASS/VOLUM E] BY AUTOMATED COUNT 33.5 32.0 - 37.5 10/27 Specimen Type: BLOOD Comment: Automated Differentia l Performed Ordering Provider: LUCIE HALL Report Released Date/Time: Mar 13, 2022 10:06 AM Reporting Lab: [facility] [address] Performing Lab: [facility] [address] [place] [facility] CBC & DIFF PLATELETS [#/VOLUME] IN BLOOD BY AUTOMATED COUNT 207 150 - 400 10/27 Specimen Type: BLOOD Comment: Automated Differentia l Performed Ordering Provider: LUCIE HALL Report Released Date/Time: Mar 13, 2022 10:06 AM Reporting Lab: [facility] [address] Performing Lab: [facility] [address] [place] [facility] CBC & DIFF PLATELET MEAN VOLUME [ENTITIC VOLUME] IN BLOOD BY AUTOMATED COUNT 9.9 7.4 - 10.4 10/27 Specimen Type: BLOOD Comment: Automated Differentia l Performed Ordering Provider: LUCIE HALL Report Released Date/Time: Mar 13, 2022 10:06 AM Reporting Lab: [facility] [address] Performing Lab: [facility] [address] [place] [facility] CBC & DIFF NEUTROPHILS /100 LEUKOCYTES IN BLOOD BY MANUAL COUNT 70.8 40.0 - 80.0 10/27 Specimen Type: BLOOD Comment: Automated Differentia l Performed Ordering Provider: LUCIE HALL Report Released Date/Time: Mar 13, 2022 10:06 AM Reporting Lab: [facility] [address] Performing Lab: [facility] [address] [place] [facility] CBC & DIFF LYMPHOCYTES /100 LEUKOCYTES IN BLOOD BY MANUAL COUNT 17.1 15.0 - 45.0 10/27 Specimen Type: BLOOD Comment: Automated Differentia l Performed Ordering Provider: LUCIE HALL Report Released Date/Time: Mar 13, 2022 10:06 AM Reporting Lab: [facility] [address] Performing Lab: [facility] [address] [place] [facility] CBC & DIFF MONOCYTES/1 00 LEUKOCYTES IN BLOOD BY AUTOMATED COUNT 8.2 2.0 - 12.0 10/27 Specimen Type: BLOOD Comment: Automated Differentia l Performed Ordering Provider: LUCIE HALL Report Released Date/Time: Mar 13, 2022 10:06 AM Reporting Lab: [facility] [address] Performing Lab: [facility] [address] [place] [facility] CBC & DIFF EOSINOPHILS /100 LEUKOCYTES IN BLOOD BY AUTOMATED COUNT 2.6 0.0 - 6.0 10/27 Specimen Type: BLOOD Comment: Automated Differentia l Performed Ordering Provider: LUCIE HALL Report Released Date/Time: Mar 13, 2022 10:06 AM Reporting Lab: [facility] [address] Performing Lab: [facility] [address] [place] [facility] CBC & DIFF BASOPHILS/1 00 LEUKOCYTES IN BLOOD BY MANUAL COUNT 0.8 0.0 - 2.0 10/27 Specimen Type: BLOOD Comment: Automated Differentia l Performed Ordering Provider: LUCIE HALL Report Released Date/Time: Mar 13, 2022 10:06 AM Reporting Lab: [facility] [address] Performing Lab: [facility] [address] [place] [facility] CBC & DIFF ERYTHROCYTE DISTRIBUTIO N WIDTH [RATIO] BY AUTOMATED COUNT 12.9 11.5 - 14.5 10/27 Specimen Type: BLOOD Comment: Automated Differentia l Performed Ordering Provider: LUCIE HALL Report Released Date/Time: Mar 13, 2022 10:06 AM Reporting Lab: [facility] [address] Performing Lab: [facility] [address] [place] [facility] CBC & DIFF LYMPHOCYTES [#/VOLUME] IN BLOOD BY AUTOMATED COUNT 2.02 1.0 - 4.0 10/27 Specimen Type: BLOOD Comment: Automated Differentia l Performed Ordering Provider: LUCIE HALL Report Released Date/Time: Mar 13, 2022 10:06 AM Reporting Lab: [facility] [address] Performing Lab: [facility] [address] [place] [facility] CBC & DIFF MONOCYTES [#/VOLUME] IN BLOOD BY AUTOMATED COUNT 0.97 0.1 - 1.0 10/27 Specimen Type: BLOOD Comment: Automated Differentia l Performed Ordering Provider: LUCIE HALL Report Released Date/Time: Mar 13, 2022 10:06 AM Reporting Lab: [facility] [address] Performing Lab: [facility] [address] [place] [facility] CBC & DIFF NEUTROPHILS [#/VOLUME] IN BLOOD BY AUTOMATED COUNT 8.35 2.0 - 7.7 10/27 H Specimen Type: BLOOD Comment: Automated Differentia l Performed Ordering Provider: LUCIE HALL Report Released Date/Time: Mar 13, 2022 10:06 AM Reporting Lab: [facility] [address] Performing Lab: [facility] [address] [place] [facility] CBC & DIFF EOSINOPHILS [#/VOLUME] IN BLOOD BY AUTOMATED COUNT 0.31 0 - 0.5 10/27 Specimen Type: BLOOD Comment: Automated Differentia l Performed Ordering Provider: LUCIE HALL Report Released Date/Time: Mar 13, 2022 10:06 AM Reporting Lab: [facility] [address] Performing Lab: [facility] [address] [place] [facility] CBC & DIFF BASOPHILS [#/VOLUME] IN BLOOD BY AUTOMATED COUNT 0.10 0 - 0.2 10/27 Specimen Type: BLOOD Comment: Automated Differentia l Performed Ordering Provider: LUCIE HALL Report Released Date/Time: Mar 13, 2022 10:06 AM Reporting Lab: [facility] [address] Performing Lab: [facility] [address] [place] [facility] CBC & DIFF IG(META,MYE LO,PRO) 0.5 10/27 Specimen Type: BLOOD Comment: Automated Differentia l Performed Ordering Provider: LUCIE HALL Report Released Date/Time: Mar 13, 2022 10:06 AM Reporting Lab: [facility] [address] Performing Lab: [facility] [address] [facility] CBC & DIFF IMMATURE GRANULOCYTE S [PRESENCE] IN BLOOD BY AUTOMATED COUNT 0.06 0 - 0.1 10/27 Specimen Type: BLOOD Comment: Automated Differentia l Performed Ordering Provider: LUCIE HALL Report Released Date/Time: Mar 13, 2022 10:06 AM Reporting Lab: [facility] [address] Performing Lab: [facility] [address] [facility] HEMOGLOBI N A1C HEMOGLOBIN A1C/HEMOGLO BIN.TOTAL IN BLOOD 7.9 4.0 - 6.0 03/13 H Specimen Type: BLOOD Comment: Values obtained from A1C measurement s can vary. For typical A1C assays, a reported value of 7.0 could actually be between 6.7 and 7.3 if measured by a reference method. A reported value of 9.0 could actually be between 8.7 and 9.3. Ref: http://www. ngsp.org/[place] Pdata.asp Ordering Provider: LUCIE HALL Report Released Date/Time: Aug 24, 2021 12:31 PM Reporting Lab: [facility] [address] Performing Lab: [facility] [address] [facility] Vital Signs Combined list of inpatient and outpatient Vital Signs from Department of Defense and Veterans Affairs, ranging from 12 months to all on record, depending upon the facility. Vital Sign Value Date Comments Source Encounters Combined list of: 1) Encounters from Department of Veterans Affairs facilities going back up to thelast 18 months. 2) Encounters from the Department of Defense facilities going back up to 280 months. Location Location Details Encounter Type Encounter Number Reason For Visit Attending Provider ADM Date DC Date Status Disposition Source [facility] PRO PHONE CALL 11-20 MIN [id number] Diagnos is: ICD-10- CM Z72.0 Tobacco use<br/ > NAIDL,GIOVANNY 02/21 [facility] IS [facility] OFFICE O/P EST MOD 30-39 MIN [id number] Diagnos is: ICD-10- CM L03.90 Celluli tis, unspeci fied
WILLIAM HALL 03/13 [facility] IS [facility] HC PRO PHONE CALL 5-10 MIN [id number] Diagnos is: ICD-10- CM Z72.0 Tobacco use<br/ > NAIDL,GIOVANNY 03/28 [facility] IS [facility] PRO PHONE CALL 11-20 MIN [id number] Diagnos is: ICD-10- CM Z72.0 Tobacco use<br/ > NAIDL,GIOVANNY 05/01 [facility] IS [facility] HC PRO PHONE CALL 11-20 MIN [id number] Diagnos is: ICD-10- CM Z72.0 Tobacco use<br/ > NAIDL,GIOVANNY 06/08 [facility] IS [facility] Outpatient Encounter [id number] 07/04 [facility] IS [facility] HC PRO PHONE CALL 11-20 MIN [id number] Diagnos is: ICD-10- CM E11.8 Type 2 diabete s mellitu s with unspeci fied complic ations< br/> NAIDL,GIOVANNY 07/11 [facility] IS [facility] HC PRO PHONE CALL 11-20 MIN [id number] Diagnos is: ICD-10- CM Z72.0 Tobacco use<br/ > NAIDL,GIOVANNY 08/03 [facility] Outpatient Encounter [id number] 08/28 [facility] Outpatient Encounter [id number] WILLIAM HALL H A 08/29 [facility] Outpatient Encounter [id number] Diagnos is: ICD-10- CM J44.9 Chronic obstruc tive pulmona ry disease , unspeci fied
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
WILLIAM HALL H A 10/27 [facility] HC PRO PHONE CALL 11-20 MIN [id number] Diagnos is: ICD-10- CM Z72.0 Tobacco use<br/ > NAIDL,GIOVANNY 11/01 [facility] HC PRO PHONE CALL 5-10 MIN [id number] Diagnos is: ICD-10- CM I10 Essenti al (primar y) hyperte nsion<b r/> KATELYN,COURTNEY C 11/24 [facility] HC PRO PHONE CALL 5-10 MIN [id number] Diagnos is: ICD-10- CM I10 Essenti al (primar y) hyperte nsion<b r/> KATELYN,COURTNEY C 12/04 [facility] PRO PHONE CALL 11-20 MIN [id number] Diagnos is: ICD-10- CM Z72.0 Tobacco use<br/ > NAIDL,GIOVANNY 01/02 [facility] Outpatient Encounter [id number] 01/12 [facility] [place] [facility] Outpatient Encounter [id number] 01/16 [facility] [place] [facility] OFF/OP CONSLTJ NEW/EST SF 20 [id number] Diagnos is: ICD-10- CM 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
MATTHEW,K AUSTAV 01/25 [facility] [place] [facility] Outpatient Encounter [id number] 01/26 [facility] PRO PHONE CALL 11-20 MIN [id number] Diagnos is: ICD-10- CM Z72.0 Tobacco use<br/ > NAIDL,GIOVANNY 03/06 [facility] [place] [facility] MTMS BY PHARM EST 15 MIN [id number] Diagnos is: ICD-10- CM Z72.0 Tobacco use<br/ > NAIDL,GIOVANNY 04/17 [facility] MTMS BY PHARM EST 15 MIN [id number] Diagnos is: ICD-10- CM Z72.0 Tobacco use<br/ > NAIDL,GIOVANNY [facility] IS [facility] MTMS BY PHARM EST 15 MIN [id number] Diagnos is: ICD-10- CM Z72.0 Tobacco use<br/ > NAIDL,GIOVANNY 06/26 [facility] Social History Combined list of available smoking, tobacco, and other social history from Department of Defense and Veterans Affairs facilities. Social History Type Response Date Comment Sourc e Tobacco smoking status NHIS VA-TOBACCO USER EVERY DAY 10/27/2022 [facility] History of tobacco use VA-TOBACCO USE WI 30 MIN OF WAKEUP 10/27/2022 [facility] History of tobacco use VA-TOBACCO USE 30 YEARS OR MORE 08/24/2021 [facility] History of tobacco use VA-TOBACCO USE WI 30 MIN OF WAKEUP 07/28/2020 [facility] History of tobacco use VA-TOBACCO USE CO UNSEL NO 07/05/2018 [facility] History of tobacco use VA-TOBACCO USE WI 30 MIN OF WAKEUP 03/01/2018 [facility] History of tobacco use CURRENT TOBACCO USER 01/23/2017 [facility] History of tobacco use CURRENT TOBACCO USER 06/14/2015 [facility] History of tobacco use CURRENT TOBACCO USER 05/25/2014 [facility] History of tobacco use CURRENT TOBACCO USER 04/05/2013 [facility] Plan of Care List of future care activities from Department of [facility] Affairs facilities. Additional future care activities may be listed in the Assessment and Plan section. Date/Time Care Activity Care Activity Detail Facili ty 08/15/2023 AMBULATORY - NONE AMBULATORY - NONE [facility] 08/22/2023 AMBULATORY - SURGERY AMBULATORY - SURGERY [facility] 08/30/2023 AMBULATORY - NONE AMBULATORY - NONE [facility] 08/30/2023 Imaging - CT Scan Order LDCT LUNG CANCER SCREENING [facility]
--- NOTE | 2023-08-10 10:51 | W.ANESCHARGE ---
Anesthesia Charges Start Date/Time Anesthesia Start Date: 08/10/23 Anesthesia Start Time: 10:25 Stop Date/Time Anesthesia Stop Date: 08/10/23 Anesthesia Stop Time: 10:49
--- NOTE | 2023-08-10 10:54 | W.ANESCHARGE ---
Anesthesia Charges Start Date/Time Anesthesia Start Date: 08/10/23 Anesthesia Start Time: 10:25 Stop Date/Time Anesthesia Stop Date: 08/10/23 Anesthesia Stop Time: 10:49 Summary Extremes of Age - Over 70 or under 1: MDA
== END 2023-08-10 09:22 | disposition home or self-care (01) ==
PROVIDERS: PCP Family Medicine; Visit Provider Internal Medicine
DX: Z12.11 Encounter for screening for malignant neoplasm of colon (principal); K62.1 Rectal polyp; K57.30 Diverticulosis of large intestine without perforation or abscess without bleeding; Z86.010 Personal history of colon polyps
CPT/HCPCS: 00811; 45380; 88305; 99100; J2704

== ENCOUNTER 2024-08-05 12:11 | Outpatient (CLI) | payer OTHER, SELFPAY | END 2024-08-05 12:12 | disposition home or self-care (01) | PROVIDERS: PCP Family Medicine; Visit Provider Family Medicine | DX: E78.2 Mixed hyperlipidemia (principal); I10 Essential (primary) hypertension; E55.9 Vitamin D deficiency, unspecified; E11.9 Type 2 diabetes mellitus without complications; R53.83 Other fatigue | CPT/HCPCS: 80048; 80061; 84443; 84460; 85025 ==